=== PATIENT | female | born 1935 | race Caucasian/White ===

== ENCOUNTER 2021-05-25 12:00 | Inpatient (IN) | payer MEDICARE ==
[2021-05-25 14:10] LABS: #Basophils 0.1 10x3/uL (0.0-0.2); #Eosinphils 0.2 10x3/uL (0.0-0.5); #Monocytes 0.5 10x3/uL (0.0-1.1); #Neutrophils 3.3 10x3/uL (1.5-8.4); %Basophils 0.9 % (0.0-2.0); %Eosinophils 3.8 % (0.0-6.0); %Lymphocytes 26.5 % (18.0-47.0); %Monocytes 8.5 % (0.0-10.0); %Neutrophils 59.9 % (40.0-75.0); Hemoglobin 11.1 g/dL (12.0-15.5); Mean Corpuscular HGB CONC 32.5 g/dL (32.0-36.0); Mean Corpuscular Hemoglobin 31.1 pg (27.0-33.0); Mean Corpuscular Volume 95.8 fl (81.6-98.3); Mean Platelet Volume 10.3 fl (7.4-10.4); Platelet Count 265 10x3/uL (150-450); RBC Distribution Width 14.3 % (11.5-14.5); Red Blood Cell (RBC) Count 3.57 10x6/uL (3.90-5.03); White Blood Cell (WBC) Count 5.6 10x3/uL (3.5-10.5)
[2021-05-25 14:17] LABS: ALT (SGPT) 16 U/L (8-55); AST (SGOT) 35 U/L (5-34); Albumin 3.9 g/dL (3.4-4.8); Alkaline Phosphatase 48 U/L (40-110); Anion Gap 14 mmol/L (10-20); BUN (Urea Nitrogen) 27 mg/dL (9.8-20.1); Bilirubin, Total 0.4 mg/dL (0.2-1.2); Calc. Creatinine Clearance 0 mL/min (70-130); Calcium 10.2 mg/dL (7.8-10.44); Carbon Dioxide 26 mmol/L (23-31); Chloride 103 mmol/L (98-107); Globulin 3.7 g/dL (2.4-3.5); Glucose 87 mg/dL (83-110); Potassium 4.8 mmol/L (3.5-5.1); Protein, Total 7.6 g/dL (5.8-8.1); Sodium 138 mmol/L (136-145)
[2021-05-25 14:18] LABS: Bilirubin Neg (Negative); Blood, Urine Negative (Negative); Clarity Clear (Clear); Glucose, Urine (Dipstick) Normal (Negative); Ketone, Urine Negative (Negative); Leukocyte Negative (Negative); Nitrite Negative (Negative); Protein, Urine (Dipstick) Negative (Neg-Trace); Specific Gravity, Urine 1.005 (1.002-1.036); Urobilinogen Normal mg/dL (Less than 2)
[2021-05-25 16:25] LABS: CKMB 2.4 ng/mL (0-6.6)
[2021-05-25] MEDS ORDERED: Senokot S 8.6-50 MG TAB PO PRN (17:27)
[2021-05-25] MEDS ORDERED: Acetaminophen 325 MG TAB PO PRN (17:27)
[2021-05-25] MEDS ORDERED: HYDROcodone/Acetaminophen 5/325 mg Tablet PO PRN (17:27)
[2021-05-25] MEDS ORDERED: Calcium Carbonate 500 MG ChewTAB PO PRN (17:27)
[2021-05-25] MEDS ORDERED: HumaLOG 300 UNITS/3 ML VIAL SC PRN (17:45)
[2021-05-25] MEDS ORDERED: Dextrose 5% in Water 1,000 ML IV PRN (17:45)
[2021-05-25] MEDS ORDERED: Dextrose 50% Abboject 50 ML SYRINGE SLOW IVP PRN (17:45)
[2021-05-25] MEDS ORDERED: hydrALAZINE 20 MG/ML VIAL SLOW IVP PRN (17:46)
[2021-05-25 19:13] LABS: Troponin I 0.034 ng/mL (< 0.028)
[2021-05-25 20:07] VITALS: BMI 36.5
[2021-05-25] MEDS ORDERED: Cefepime 1 GM in Sodium Chloride 0.9% 100 ML IVPB SCH (21:00)
[2021-05-25] MEDS: Sodium Chloride 0.9% 1,000 ML IV SCH (21:00)
[2021-05-25] MEDS ORDERED: Vancomycin 1.5 GRAM/300 ML BAG 1.5 GM in Premix Bag 1 BAG IVPB SCH (21:30)
[2021-05-25 21:53] LABS: Troponin I 0.036 ng/mL (< 0.028)
[2021-05-25] MEDS ORDERED: VANCOMYCIN 1.25 GM/250 ML BAG 1.25 GM in Premix Bag 1 BAG IVPB PRN (22:45)
[2021-05-26 05:12] LABS: #Basophils 0.1 10x3/uL (0.0-0.2); #Eosinphils 0.4 10x3/uL (0.0-0.5); #Monocytes 0.6 10x3/uL (0.0-1.1); #Neutrophils 2.9 10x3/uL (1.5-8.4); %Basophils 1.1 % (0.0-2.0); %Eosinophils 6.5 % (0.0-6.0); %Lymphocytes 28.9 % (18.0-47.0); %Monocytes 11.2 % (0.0-10.0); %Neutrophils 52.1 % (40.0-75.0); Hemoglobin 9.2 g/dL (12.0-15.5); Mean Corpuscular HGB CONC 32.6 g/dL (32.0-36.0); Mean Corpuscular Hemoglobin 31.1 pg (27.0-33.0); Mean Corpuscular Volume 95.3 fl (81.6-98.3); Mean Platelet Volume 11.1 fl (7.4-10.4); Platelet Count 261 10x3/uL (150-450); RBC Distribution Width 14.6 % (11.5-14.5); Red Blood Cell (RBC) Count 2.96 10x6/uL (3.90-5.03); White Blood Cell (WBC) Count 5.5 10x3/uL (3.5-10.5)
[2021-05-26 05:47] LABS: Anion Gap 15 mmol/L (10-20); BUN (Urea Nitrogen) 27 mg/dL (9.8-20.1); Calc. Creatinine Clearance 35 mL/min (70-130); Calcium 8.8 mg/dL (7.8-10.44); Carbon Dioxide 20 mmol/L (23-31); Chloride 105 mmol/L (98-107); Glucose 70 mg/dL (83-110); Sodium 135 mmol/L (136-145)
[2021-05-26 05:54] LABS: Potassium 4.8 mmol/L (3.5-5.1)
[2021-05-26] MEDS: Enoxaparin Sodium 30 MG/0.3 ML SYRINGE SC SCH (08:43)
[2021-05-26] MEDS: Aspirin 81 mg Enteric Coated Tablet PO SCH (08:43)
[2021-05-26] MEDS: Sodium Chloride 0.9% 1,000 ML IV SCH (16:43)
[2021-05-26 21:40] LABS: Vancomycin, Random 14.1 ug/mL (See Comment)
[2021-05-26] MEDS: Cefepime 1 GM in Sodium Chloride 0.9% 100 ML IVPB SCH (21:47)
[2021-05-26 23:35] LABS: SARS-CoV-2 PCR by NAA DETECTED (NotDetected)
[2021-05-27] MEDS ORDERED: VANCOMYCIN 1.25 GM/250 ML BAG 1.25 GM in Premix Bag 1 BAG IVPB SCH (09:00)
[2021-05-27] MEDS: Ascorbic Acid 500 mg Chewable Tablet PO SCH (09:46)
[2021-05-27] MEDS: Enoxaparin Sodium 30 MG/0.3 ML SYRINGE SC SCH (09:46)
[2021-05-27] MEDS: Cholecalciferol (Vitamin D3) 400 UNITS TAB PO SCH ×2 (09:46→10:48)
[2021-05-27] MEDS: Aspirin 81 mg Enteric Coated Tablet PO SCH ×2 (09:46→10:48)
[2021-05-27] MEDS: Zinc Sulfate 220 MG CAP PO SCH ×2 (09:47→10:48)
[2021-05-27] MEDS: Sodium Chloride 0.9% 1,000 ML IV SCH (10:46)
[2021-05-27] MEDS: Cefepime 1 GM in Sodium Chloride 0.9% 100 ML IVPB SCH (20:57)
[2021-05-28] MEDS: Sodium Chloride 0.9% 1,000 ML IV SCH (05:50)
[2021-05-28] MEDS: Ascorbic Acid 500 mg Chewable Tablet PO SCH (08:49)
[2021-05-28] MEDS: Aspirin 81 mg Enteric Coated Tablet PO SCH (08:49)
[2021-05-28] MEDS: Enoxaparin Sodium 30 MG/0.3 ML SYRINGE SC SCH (08:49)
[2021-05-28] MEDS: Zinc Sulfate 220 MG CAP PO SCH (08:49)
[2021-05-28] MEDS: Cholecalciferol (Vitamin D3) 400 UNITS TAB PO SCH (08:49)
[2021-05-28 20:39] LABS: Vancomycin, Trough 11.4 ug/mL
[2021-05-29 05:28] LABS: #Basophils 0.1 10x3/uL (0.0-0.2); #Eosinphils 0.4 10x3/uL (0.0-0.5); #Monocytes 0.6 10x3/uL (0.0-1.1); #Neutrophils 4.1 10x3/uL (1.5-8.4); %Basophils 0.9 % (0.0-2.0); %Eosinophils 5.5 % (0.0-6.0); %Lymphocytes 24.7 % (18.0-47.0); %Monocytes 8.5 % (0.0-10.0); %Neutrophils 60.3 % (40.0-75.0); Hemoglobin 11.8 g/dL (12.0-15.5); Mean Corpuscular HGB CONC 30.8 g/dL (32.0-36.0); Mean Corpuscular Hemoglobin 31.8 pg (27.0-33.0); Mean Corpuscular Volume 103.2 fl (81.6-98.3); Mean Platelet Volume 10.6 fl (7.4-10.4); Platelet Count 258 10x3/uL (150-450); RBC Distribution Width 14.9 % (11.5-14.5); Red Blood Cell (RBC) Count 3.71 10x6/uL (3.90-5.03); White Blood Cell (WBC) Count 6.7 10x3/uL (3.5-10.5)
[2021-05-29 05:37] LABS: Anion Gap 18 mmol/L (10-20); BUN (Urea Nitrogen) 14 mg/dL (9.8-20.1); Calc. Creatinine Clearance 67 mL/min (70-130); Calcium 9.4 mg/dL (7.8-10.44); Carbon Dioxide 18 mmol/L (23-31); Chloride 112 mmol/L (98-107); Glucose 104 mg/dL (83-110); Sodium 142 mmol/L (136-145)
[2021-05-29 05:38] LABS: Potassium 5.5 mmol/L (3.5-5.1)
[2021-05-29] MEDS ORDERED: Non-Formulary Medication 1 EACH (Fluticasone Propionate [Flovent Diskus] 50 MCG Blst.W.Dev IH PRN (07:19)
[2021-05-29] MEDS ORDERED: Levothyroxine 150 MCG TAB PO SCH (07:45)
[2021-05-29] MEDS ORDERED: Amlodipine 5 MG TAB PO SCH (09:00)
[2021-05-29] MEDS ORDERED: Enoxaparin Sodium 40 MG/0.4 ML SYRINGE SC SCH (09:00)
[2021-05-29] MEDS ORDERED: Loratadine 10 MG TAB PO SCH (09:00)
[2021-05-29] MEDS ORDERED: Furosemide 20 MG TAB PO SCH (09:00)
[2021-05-29] MEDS ORDERED: Fluticasone Propionate Nasal Spray 16 gm Bottle NASAL SCH (09:00)
[2021-05-29] MEDS ORDERED: Pioglitazone HCl 15 MG TAB PO SCH (09:00)
[2021-05-29] MEDS: Ascorbic Acid 500 mg Chewable Tablet PO SCH (09:10)
[2021-05-29] MEDS: Zinc Sulfate 220 MG CAP PO SCH (09:10)
[2021-05-29] MEDS: Cholecalciferol (Vitamin D3) 400 UNITS TAB PO SCH (09:11)
[2021-05-29] MEDS: Aspirin 81 mg Enteric Coated Tablet PO SCH (09:11)
[2021-05-29 12:35] VITALS: BP 143/68; TEMP 98
[2021-05-29] MEDS ORDERED: Donepezil HCl 5 MG TAB PO SCH (21:00)
[2021-05-29] MEDS ORDERED: Fenofibrate Nanocrystallized 145 MG TAB PO SCH (21:00)
[2021-05-29] MEDS ORDERED: Atorvastatin Calcium 10 MG TAB PO SCH (21:00)
[2021-05-29] MEDS ORDERED: Multivitamin W/ Minerals 1 TAB PO SCH (21:00)
[2021-05-29] MEDS ORDERED: DULoxetine 30 MG CAP PO SCH (21:00)
[2021-05-30] MEDS ORDERED: Levothyroxine 150 MCG TAB PO SCH (06:00)
== END 2021-05-29 16:31 | DRG 602 ==
LOC: CSHERS 12:00 → CSHTELE 19:40
PROVIDERS: ADMIT Family Medicine; ATTEND Family Medicine
DX: L03.116 Cellulitis of left lower limb (principal); U07.1 COVID-19; N17.9 Acute kidney failure, unspecified; L03.115 Cellulitis of right lower limb; E11.22 Type 2 diabetes mellitus with diabetic chronic kidney disease; N18.30 Chronic kidney disease, stage 3 unspecified; E03.9 Hypothyroidism, unspecified; Z96.653 Presence of artificial knee joint, bilateral; E78.5 Hyperlipidemia, unspecified; F32.A Depression, unspecified; F41.9 Anxiety disorder, unspecified; I10 Essential (primary) hypertension; F03.90 Unspecified dementia, unspecified severity, without behavioral disturbance, psychotic disturbance, mood disturbance, and anxiety; R77.8 Other specified abnormalities of plasma proteins; Z86.79 Personal history of other diseases of the circulatory system; Z95.0 Presence of cardiac pacemaker; Z90.710 Acquired absence of both cervix and uterus; Z90.49 Acquired absence of other specified parts of digestive tract
CPT/HCPCS: 36415; 36416; 70450; 71045; 80048; 80053; 80202; 81003; 82553; 84443; 84484; 85025; 85652; 86140; 93005; 93306; 93970; J0692; J1650; J3370; J3490; J7050; U0003; U0005